=== PATIENT | female | born 1965 | race African-American/Black ===

== ENCOUNTER 2018-11-06 06:54 | Inpatient (IN) | payer OTHER ==
--- NOTE | 2018-11-06 07:50 | Emergency Department Report ---
ED Abdominal Pain HPI - General Chief Complaint: Dyspnea/Respdistress Stated Complaint: SOB Time Seen by Provider: 11/06/18 07:45 Source: patient, family Mode of arrival: Wheelchair Limitations: Physical Limitation - History of Present Illness Initial Comments: This is a 53-year-old female who was due for dialysis today but elected to come to the emergency department for evaluation of shortness of breath. She states that she's had occasional nonproductive cough but certainly no hemoptysis. She does not complain of leg pain. She states that she has minimal swelling of her right lower leg. She does not complain of chest pain. She feels as if gas is running through her abdomen without any acute abdominal pain. She's had no fever or chills. She does not report any nausea or vomiting. She has a recently placed AV graft and a right vas cath. She denies fever or chills. She states she had a transfusion during her recent hospitalization. She also had PCI for non-STEMI. See below. Recent Hospitalization 10/20/18: Hospitalization Reason for admission: ESRD on HD, ACS, NSTEMI Condition: Stable Hospital course: Patient is 53 years old female with history of hypertension, diabetes and end- stage renal disease. Patient had right AV fistula placed today. Patient brought to the ER via EMS accompanied by her daughter and her . Family stated that the patient is not feeling well since left the hospital today. Complaining of generalized weakness and shortness of breath. Patient initial oxygen saturation was 78% patient brought on oxygen and he went to 87%. Patient started on BiPAP. Patient denied any chest pain, fever or cough. Patient found to have a high blood glucose. NSTEMI. CE pattern is c/w NSTEMI type I, ECG with diffuse ST depressions. Optimize anti-ischemic regimen. Patient had left heart cath . cardiac cath revealed lt main patent, lad patent, lcx patent [id number] patent, ostial diagonal 90% small vessel, left to right collateral to pda and rca mid 99% dejuan 2 flow and normal lv function, had pci of rca with wenceslao resolute cali 2.75 x 38 mm and restored dejuan 3 flow and post pci care , asa and plavix Acute heart failure with preserved ejection fraction. Echocardiogram reveals EF 60-65%. Hemodialysis initiated. ESRD on HD ; nephrology os on board and was dialized while she was inpatient and O/P hemodialysis arranged. Sepsis. was treated with IV rocephin. Acute hypoxemic respiratory failure. Etiology secondary to volume overload and bilateral pneumonia. Continue to treat underlying causes. Improved. Acute on Chronic kidney disease stage V. Hemodialysis per nephrology. Hypertension. Continue antihypertensive medications. Anemia. Follow H&H and transfuse for hemoglobin less than 7. Disposition: will be discharged once O/P HD is arranged. Disposition: [id number] HOME UNDER HOME [facility] Time spent for discharge: 34 minutes - Discharge Diagnoses (1) Acute on chronic kidney failure Status: Acute (2) Acute respiratory failure with hypoxia Status: Acute (3) Fluid overload Status: Acute (4) HTN (hypertension) Status: Acute Core Measure Documentation - Palliative Care Palliative Care/ Comfort Measures: Not Applicable - Core Measures Any of the following diagnoses?: heart failure - Acute HI Discharge Requirements Aspirin at discharge: Yes GEOFFREY/ARB for LVSD if EF <40%: No Reason for no GEOFFREY/ARB: Renal impairment Statin for LDL = or >100 mg/dl on DC: Yes - Heart Failure Discharge Requirements GEOFFREY/ARB for LVSD if EF <40%: Not Applicable Beta dedra at discharge: Yes -: Gradual, hour(s) Radiation: other (no complaints of chest pain, vague abdominal gas only) - Related Data Home Medications Medication Instructions Recorded Confirmed Last Taken Sertraline HCl 25 mg PO DAILY 07/23/14 10/13/18 10/11/18 Aspirin [Adult Aspirin] 81 mg PO DAILY 10/11/18 10/13/18 1 Week Ago ~10/05/18 Sodium Bicarbonate 3 tab PO BID 10/11/18 10/13/18 10/11/18 amLODIPine [Norvasc] 5 mg PO QPM 10/11/18 10/13/18 10/11/18 Carvedilol 6.25 mg PO BID 10/13/18 10/13/18 Unknown Previous Rx's Medication Instructions Recorded Last Taken Type HYDROcodone/APAP 5-325 [[place] 1 each PO Q6HR PRN #30 tablet 10/12/18 1 Day Ago Rx 5-325 mg TAB] ~10/12/18 Aspirin [Aspirin BABY CHEW TAB] 81 mg PO QDAY #30 tab.chew 10/20/18 Unknown Rx Carvedilol [Coreg] 25 mg PO BID #60 tablet 10/20/18 Unknown Rx Clopidogrel [Plavix] 75 mg PO QDAY #30 tablet 10/20/18 Unknown Rx Ergocalciferol(Vitamin D2)(Nf) 50,000 unit PO QWEEK #4 tablet 10/20/18 Unknown Rx [Vitamin D (Nf)] Famotidine [Pepcid] 20 mg PO DAILY #30 tablet 10/20/18 Unknown Rx Ferrous Sulfate [Iron] 325 mg PO BID #30 tablet 10/20/18 Unknown Rx ISOSORBIDE MONOnitrate [Imdur ER] 30 mg PO QDAY #30 tablet 10/20/18 Unknown Rx Insulin NPH Hum/Reg Insulin Hm 30 unit SQ QPM #1 vial 10/20/18 Unknown Rx [Relion Novolin 70-30 Vial] Insulin NPH Hum/Reg Insulin Hm 35 unit SQ QAM #1 vial 10/20/18 Unknown Rx [Relion Novolin 70-30 Vial] Ipratropium/Albuterol Sulfate 1 ampul IH TIDRT #60 ampul.neb 10/20/18 Unknown Rx [DUONEB *Not for PRN Use*] Losartan [Cozaar] 100 mg PO QDAY #30 tablet 10/20/18 Unknown Rx Pravastatin [Pravachol] 20 mg PO QHS #30 tablet 10/20/18 Unknown Rx amLODIPine [Norvasc] 10 mg PO QAM #30 tablet 10/20/18 Unknown Rx Allergies Allergy/AdvReac Type Severity Reaction Status Date / Time hydrocodone Allergy Unknown Verified 11/06/18 07:29 ED Review of Systems ROS: Stated complaint: SOB Other details as noted in HPI Constitutional: denies: chills, fever Eyes: denies: eye pain, eye discharge, vision change ENT: denies: ear pain, throat pain Respiratory: cough (occasional), shortness of breath. denies: wheezing Cardiovascular: denies: chest pain, palpitations Endocrine: no symptoms reported Gastrointestinal: as per HPI. denies: nausea, diarrhea Genitourinary: denies: urgency, dysuria, discharge Musculoskeletal: as per HPI. denies: back pain, joint swelling, arthralgia Skin: denies: rash, lesions Neurological: denies: headache, weakness, paresthesias Psychiatric: denies: anxiety, depression Hematological/Lymphatic: denies: easy bleeding, easy bruising ED Past Medical Hx - Past Medical History Previous Medical History?: Yes Hx Hypertension: Yes Hx Diabetes: Yes Hx Renal Disease: Yes Additional medical history: Kidneys at 44% function, last tested 05/15 - Surgical History Past Surgical History?: Yes Additional Surgical History: hysterectomy, ovarian cysts, Right chest perm cath - Social History Smoking Status: Never Smoker Substance Use Type: Prescribed - Medications Home Medications: Home Medications Medication Instructions Recorded Confirmed Last Taken Type Sertraline HCl 25 mg PO DAILY 07/23/14 10/13/18 10/11/18 History Aspirin [Adult Aspirin] 81 mg PO DAILY 10/11/18 10/13/18 1 Week Ago History ~10/05/18 Sodium Bicarbonate 3 tab PO BID 10/11/18 10/13/18 10/11/18 History amLODIPine [Norvasc] 5 mg PO QPM 10/11/18 10/13/18 10/11/18 History HYDROcodone/APAP 5-325 [[place] 1 each PO Q6HR PRN #30 tablet 10/12/18 10/13/18 1 Day Ago Rx 5-325 mg TAB] ~10/12/18 Carvedilol 6.25 mg PO BID 10/13/18 10/13/18 Unknown History Aspirin [Aspirin BABY CHEW TAB] 81 mg PO QDAY #30 tab.chew 10/20/18 Unknown Rx Carvedilol [Coreg] 25 mg PO BID #60 tablet 10/20/18 Unknown Rx Clopidogrel [Plavix] 75 mg PO QDAY #30 tablet 10/20/18 Unknown Rx Ergocalciferol(Vitamin D2)(Nf) 50,000 unit PO QWEEK #4 tablet 10/20/18 Unknown Rx [Vitamin D (Nf)] Famotidine [Pepcid] 20 mg PO DAILY #30 tablet 10/20/18 Unknown Rx Ferrous Sulfate [Iron] 325 mg PO BID #30 tablet 10/20/18 Unknown Rx ISOSORBIDE MONOnitrate [Imdur ER] 30 mg PO QDAY #30 tablet 10/20/18 Unknown Rx Insulin NPH Hum/Reg Insulin Hm 30 unit SQ QPM #1 vial 10/20/18 Unknown Rx [Relion Novolin 70-30 Vial] Insulin NPH Hum/Reg Insulin Hm 35 unit SQ QAM #1 vial 10/20/18 Unknown Rx [Relion Novolin 70-30 Vial] Ipratropium/Albuterol Sulfate 1 ampul IH TIDRT #60 ampul.neb 10/20/18 Unknown Rx [DUONEB *Not for PRN Use*] Losartan [Cozaar] 100 mg PO QDAY #30 tablet 10/20/18 Unknown Rx Pravastatin [Pravachol] 20 mg PO QHS #30 tablet 10/20/18 Unknown Rx amLODIPine [Norvasc] 10 mg PO QAM #30 tablet 10/20/18 Unknown Rx ED Physical Exam - General Limitations: Physical Limitation General appearance: alert, in no apparent distress, other (appears somewhat pale) - Head Head exam: Present: atraumatic, normocephalic - Eye Eye exam: Present: normal appearance, PERRL, EOMI. Absent: scleral icterus - ENT ENT exam: Present: mucous membranes moist - Neck Neck exam: Present: normal inspection - Respiratory Respiratory exam: Present: rhonchi. Absent: respiratory distress - Cardiovascular Cardiovascular Exam: Present: regular rate, normal rhythm. Absent: systolic murmur, diastolic murmur, rubs, gallop - GI/Abdominal GI/Abdominal exam: Present: soft, normal bowel sounds. Absent: distended, tend erness, guarding, rebound, rigid - Extremities Exam Extremities exam: Present: normal capillary refill, other (trace pretibial/ankle edema right). Absent: calf tenderness - Back Exam Back exam: Present: normal inspection. Absent: CVA tenderness (R), CVA tenderness (L) - Neurological Exam Neurological exam: Present: alert, oriented X3, CN II-XII intact. Absent: motor sensory deficit - Psychiatric Psychiatric exam: Present: normal affect, normal mood - Skin Skin exam: Present: warm, dry, intact, normal color. Absent: rash ED Course Vital Signs 11/06/18 11/06/18 11/06/18 06:59 07:03 07:26 Temperature 98.6 F 97.6 F Pulse Rate 69 71 Respiratory 18 18 Rate Blood Pressure 150/71 150/71 Blood Pressure [Left] O2 Sat by Pulse 98 97 99 Oximetry 11/06/18 11/06/18 11/06/18 07:30 07:45 08:00 Temperature Pulse Rate 78 Respiratory 21 Rate Blood Pressure 143/58 154/65 154/65 Blood Pressure 146/60 [Left] O2 Sat by Pulse 97 97 100 Oximetry 11/06/18 11/06/18 11/06/18 08:08 08:15 08:30 Temperature Pulse Rate 72 78 Respiratory 22 17 33 H Rate Blood Pressure 148/54 150/43 Blood Pressure [Left] O2 Sat by Pulse 98 100 100 Oximetry 11/06/18 11/06/18 11/06/18 08:46 09:00 09:16 Temperature Pulse Rate 78 68 76 Respiratory 29 H 14 29 H Rate Blood Pressure 150/43 150/43 150/43 Blood Pressure [Left] O2 Sat by Pulse 100 99 100 Oximetry 11/06/18 11/06/18 11/06/18 09:30 09:46 10:00 Temperature Pulse Rate 80 70 97 H Respiratory 31 H 28 H 24 Rate Blood Pressure 150/43 149/61 145/127 Blood Pressure [Left] O2 Sat by Pulse 100 99 98 Oximetry 11/06/18 11/06/18 11/06/18 10:16 10:30 10:46 Temperature Pulse Rate Respiratory Rate Blood Pressure 145/127 148/66 148/66 Blood Pressure [Left] O2 Sat by Pulse 99 100 100 Oximetry 11/06/18 11/06/18 11/06/18 11:00 11:16 11:30 Temperature Pulse Rate 73 77 Respiratory 23 26 H Rate Blood Pressure 148/65 148/65 155/67 Blood Pressure [Left] O2 Sat by Pulse 100 100 100 Oximetry - Reevaluation(s) Reevaluation #1: Patient is now being dialyzed. She remained in stable condition. Her right of way agent is here to see her. The hospitalist has already contacted the emergency department. 11/06/18 12:02 ED Medical Decision Making - Lab Data Result diagrams: 11/06/18 07:56 11/06/18 07:56 Laboratory Results - last 24 hr 11/06/18 11/06/18 11/06/18 07:56 07:56 07:56 WBC 9.0 RBC 3.16 L Hgb 9.8 L Hct 28.6 L MCV 91 MCH 31 MCHC 34 RDW 13.7 Plt Count 213 Lymph % (Auto) 11.9 L [place] % (Auto) 5.4 Eos % (Auto) 3.0 Baso % (Auto) 0.5 Lymph # 1.1 L [place] # 0.5 Eos # 0.3 Baso # 0.0 Seg Neutrophils % 79.2 H Seg Neutrophils # 7.1 PT 13.8 INR 1.02 APTT 28.8 D-Dimer 1125.20 H Sodium 134 L Potassium 5.0 Chloride 98.0 Carbon Dioxide 21 L Anion Gap 20 BUN 21 H Creatinine 4.0 H Estimated GFR 12 BUN/Creatinine Ratio 5 Glucose 195 H Lactic Acid Calcium 9.3 Magnesium 2.00 Total Bilirubin 0.70 AST 13 ALT 16 Alkaline Phosphatase 96 Total Creatine Kinase 55 CK-MB (CK-2) 1.2 CK-MB (CK-2) Rel Index 2.1 Troponin T < 0.010 Total Protein 7.6 Albumin 4.3 Albumin/Globulin Ratio 1.3 Lipase 39 11/06/18 07:56 WBC RBC Hgb Hct MCV MCH MCHC RDW Plt Count Lymph % (Auto) [place] % (Auto) Eos % (Auto) Baso % (Auto) Lymph # [place] # Eos # Baso # Seg Neutrophils % Seg Neutrophils # PT INR APTT D-Dimer Sodium Potassium Chloride Carbon Dioxide Anion Gap BUN Creatinine Estimated GFR BUN/Creatinine Ratio Glucose Lactic Acid 0.60 L Calcium Magnesium Total Bilirubin AST ALT Alkaline Phosphatase Total Creatine Kinase CK-MB (CK-2) CK-MB (CK-2) Rel Index Troponin T Total Protein Albumin Albumin/Globulin Ratio Lipase Critical Care Time: Yes Critical care time in (mins) excluding proc time.: 45 Critical care attestation.: If time is entered above; I have spent that time in minutes in the direct care of this critically ill patient, excluding procedure time. ED Disposition Clinical Impression: End-stage renal disease needing dialysis, Elevated d-dimer Pulmonary edema Qualifiers: Chronicity: acute Qualified Code(s): J81.0 - Acute pulmonary edema Disposition: OP ADMIT IP TO THIS HOSP Is pt being admited?: Yes Does the pt Need Aspirin: Yes Condition: Stable Instructions: Pulmonary Edema (ED) Referrals: CAITLIN JOHNS MD [Primary Care Provider] - 3-5 Days
[2018-11-06 08:18] LABS: Basophils % (Auto) 0.5 % (0.0-1.8); Eosinophils # (Auto) 0.3 K/mm3 (0.0-0.4); Hematocrit 28.6 % (30.3-42.9); Hemoglobin 9.8 gm/dl (10.1-14.3); Lymphocytes # (Auto) 1.1 K/mm3 (1.2-5.4); Lymphocytes % (Auto) 11.9 % (13.4-35.0); Mean Corpuscular HGB Conc 34 % (30-34); Mean Corpuscular Volume 91 fl (79-97); Monocytes # (Auto) 0.5 K/mm3 (0.0-0.8); Monocytes % (Auto) 5.4 % (0.0-7.3); Platelet Count 213 K/mm3 (140-440); Red Blood Count 3.16 M/mm3 (3.65-5.03); Red Cell Distribution Width 13.7 % (13.2-15.2)
[2018-11-06 08:31] LABS: INR 1.02 (0.87-1.13)
[2018-11-06 08:32] LABS: Partial Thromboplastin Time 28.8 Sec. (24.2-36.6)
[2018-11-06 08:41] LABS: Creatine Kinase MB 1.2 ng/mL (0.0-4.0)
[2018-11-06 08:44] LABS: Alanine Aminotransferase 16 units/L (7-56); Albumin 4.3 g/dL (3.9-5); BUN/Creatinine Ratio 5; Blood Urea Nitrogen 21 mg/dL (7-17); Calcium 9.3 mg/dL (8.4-10.2); Hemolysis Index 3
[2018-11-06 08:49] LABS: Bilirubin,Direct < 0.2 mg/dL (0-0.2)
[2018-11-06] MEDS ORDERED: LASIX IV ONE (08:57)
--- NOTE | 2018-11-06 09:07 | XRay Report ---
FINAL REPORT EXAM: XR CHEST 1V AP HISTORY: Dyspnea TECHNIQUE: Frontal chest x-ray. PRIORS: Chest x-ray October 14, 2018. FINDINGS: Hypoaerated lungs accentuate the pulmonary markings and cardiac silhouette. Cardiac silhouette is within normal limits. Prominent bilateral pulmonary markings with airspace opacities. No pneumothorax. Small bilateral pleu ral effusions with adjacent areas of subsegmental atelectasis. There are no suspicious osseous lesions. Right jugular dual lumen dialysis catheter tip is near the caval atrial junction. IMPRESSION: Pulmonary findings suggest pulmonary vascular congestion with edema. Slightly decreased compared to p rior. Differential diagnosis includes pneumonia and pneumonitis. Small bilateral pleural effusions with adjacent areas of subsegmental atelectasis.
[2018-11-06 09:24] LABS: Bilirubin,Urine NEG (Negative); Blood,Urine NEG (Negative); Color,Urine Straw (Yellow); Mucus,Urine FEW /HPF; Urobilinogen,Urine < 2.0 mg/dL (<2.0)
[2018-11-06] MEDS ORDERED: NACL 0.9% 100 ML IV PRN (09:31)
[2018-11-06] MEDS ORDERED: BABY ASPIRIN PO ONE (12:03)
--- NOTE | 2018-11-06 12:45 | Consultation ---
History of Present Illness - Reason for Consult end stage renal disease Requesting physician: TANYA STRINGER - History of Present Illness Patient is 53 years old female with history of hypertension, diabetes and end- stage renal disease. She is brought to the emergency room with the complaints of shortness of breath. She was started on dialysis approximately a month ago. She currently undergoes dialysis at [facility]. She also has been complaining of some increasing leg swelling. Denies any nausea or vomiting. Past History Past Medical History: CAD, dialysis, hypertension Past Surgical History: Other (history of PermCath placement as well as AV fistula creation) Social history: no significant social history Family history: no significant family history Medications and Allergies Allergies Allergy/AdvReac Type Severity Reaction Status Date / Time hydrocodone Allergy Unknown Verified 11/06/18 07:29 Home Medications Medication Instructions Recorded Confirmed Last Taken Type Sertraline HCl 25 mg PO DAILY 07/23/14 10/13/18 10/11/18 History Aspirin [Adult Aspirin] 81 mg PO DAILY 10/11/18 10/13/18 1 Week Ago History ~10/05/18 Sodium Bicarbonate 3 tab PO BID 10/11/18 10/13/18 10/11/18 History amLODIPine [Norvasc] 5 mg PO QPM 10/11/18 10/13/18 10/11/18 History HYDROcodone/APAP 5-325 [[place] 1 each PO Q6HR PRN #30 tablet 10/12/18 10/13/18 1 Day Ago Rx 5-325 mg TAB] ~10/12/18 Carvedilol 6.25 mg PO BID 10/13/18 10/13/18 Unknown History Aspirin [Aspirin BABY CHEW TAB] 81 mg PO QDAY #30 tab.chew 10/20/18 Unknown Rx Carvedilol [Coreg] 25 mg PO BID #60 tablet 10/20/18 Unknown Rx Clopidogrel [Plavix] 75 mg PO QDAY #30 tablet 10/20/18 Unknown Rx Ergocalciferol(Vitamin D2)(Nf) 50,000 unit PO QWEEK #4 tablet 10/20/18 Unknown Rx [Vitamin D (Nf)] Famotidine [Pepcid] 20 mg PO DAILY #30 tablet 10/20/18 Unknown Rx Ferrous Sulfate [Iron] 325 mg PO BID #30 tablet 10/20/18 Unknown Rx ISOSORBIDE MONOnitrate [Imdur ER] 30 mg PO QDAY #30 tablet 10/20/18 Unknown Rx Insulin NPH Hum/Reg Insulin Hm 30 unit SQ QPM #1 vial 10/20/18 Unknown Rx [Relion Novolin 70-30 Vial] Insulin NPH Hum/Reg Insulin Hm 35 unit SQ QAM #1 vial 10/20/18 Unknown Rx [Relion Novolin 70-30 Vial] Ipratropium/Albuterol Sulfate 1 ampul IH TIDRT #60 ampul.neb 10/20/18 Unknown Rx [DUONEB *Not for PRN Use*] Losartan [Cozaar] 100 mg PO QDAY #30 tablet 10/20/18 Unknown Rx Pravastatin [Pravachol] 20 mg PO QHS #30 tablet 10/20/18 Unknown Rx amLODIPine [Norvasc] 10 mg PO QAM #30 tablet 10/20/18 Unknown Rx Active Meds: Active Medications Sodium Chloride (Nacl 0.9%) 100 mls @ 999 mls/hr IV ANSELMO PRN PRN Reason: Hypotension Review of Systems All systems: negative (negative except as noted above) Exam - Vital Signs Vital signs: Vital Signs Temp Pulse Resp BP Pulse Ox 98.6 F 69 18 150/71 98 11/06/18 06:59 11/06/18 06:59 11/06/18 06:59 11/06/18 06:59 11/06/18 06:59 - General Appearance General appearance: well-developed, well-nourished, appears stated age EENT: PERRL, mucous membranes moist Neck: Present: neck supple, trachea midline. Absent: JVD/HJR, Masses Respiratory: Rales (bibasilar crackles) Heart: regular, normal heart rate, S1S2, no murmurs Gastrointestinal: Present: normal, normoactive bowel sounds Integumentary: other (1+ edema. AV fistula right upper arm. Good bruit and thrill. Not mature yet) Results - Lab Results 11/06/18 07:56 11/06/18 07:56 Most recent lab results Calcium 9.3 mg/dL (8.4-10.2) 11/06/18 07:56 Magnesium 2.00 mg/dL (1.7-2.3) 11/06/18 07:56 Assessment and Plan Impression * End-stage renal disease on maintenance hemodialysis * Shortness of breath. Most likely secondary to pulmonary edema * Hypertension * Coronary artery disease * Anemia secondary to ESRD Recommendations * Arrange for hemodialysis treatment today * Remove fluid as tolerated * Adjust diet and meds for ESRD state * No IV, BP of any puncture access arm * Binders with meals * Procrit with dialysis * Agree with VQ scan to rule out pulmonary embolism * Discussed with family at bedside * Thank you very much for the consultation. Shall follow along with you
--- NOTE | 2018-11-06 13:58 | Nuclear Medicine Report ---
FINAL REPORT EXAM: NM LUNG SCAN PERF/VENT HISTORY: LULI elevated dimer TECHNIQUE: 13.6 mCi Xenon-133 was used for ventilation. 5.1 mCi of technetium 99m MAA was used for perfusion. Multiple planar images were obtained. PRIORS: Chest x-ray November 06, 2018. FINDINGS: Ventilation: Heterogeneous. Perfusion: Subsegmental perfusion deficits in both upper lobes. Prominent cardiac silhouette. IMPRESSION: Based on the PIOPED study, findings represent low probability for PE. Suspect COPD or pulmonary vascular congestion. Cardiomegaly
--- NOTE | 2018-11-06 16:56 | History and Physical Report ---
History of Present Illness Date of examination: 11/06/18 Date of admission: 11/06/18 11:34 Chief complaint: Shortness of breath History of present illness: 53-year-old female with past medical history significant for ESRD on hemodialysis, NSTEMI status post stent, hypertension, diabetes mellitus, congestive heart failure presented to the emergency department complaining of shortness of breath that was worsened yesterday. Patient is also complaining wheezing and occasional dry cough. Patient denies chest pain, fever, runny nose, palpitation, leg swelling, PND. Patient had 3 hours of dialysis on . Patient was recently discharged after she was treated for ESRD on hemodialysis, NSTEMI and CHF. REVIEW OF SYSTEMS: GENERAL: no weight change, no fatigue, no fever HEAD: no head ache EYES: no blurry vision, no acute visual loss EARS: no hearing loss, no discharge, no earache NOSE: no stuffiness, no sneezing, no discharge MOUTH, THROAT AND NECK: no bleeding gums, no sore throat, no swollen neck CARDIAC: As stated in HPI. RESPIRATORY: As stated in the HPI. GI: no decreased appetite, no nausea, no vomiting, no dysphagia, no diarrhea, no constipation, no abdominal pain. URINARY: no change in frequency, no urgency, no polyuria, no hematuria, no incontinence. MUSCULOSKELETAL: no muscle weakness, no pain, no joint stiffness. NEUROLOGIC: no loss of sensation/numbness, no tingling, no tremors, no weakness/paralysis. HEMATOLOGIC: no anemia, no easy bruising. SKIN: no rashes. ENDOCRINE: no heat/cold intolerance, no polyuria, no polydipsia, no thyroid problems. PSYCHIATRIC: no anxiety, no depression, no suicidal ideations. Past History Past Medical History: CAD, dialysis, hypertension Past Surgical History: hysterectomy, Other (history of PermCath placement as well as AV fistula creation) Social history: full code. denies: smoking, alcohol abuse, prescription drug abuse, IV drug use Family history: no significant family history Medications and Allergies Allergies Allergy/AdvReac Type Severity Reaction Status Date / Time hydrocodone Allergy Unknown Verified 11/06/18 07:29 Home Medications Medication Instructions Recorded Confirmed Last Taken Type Sertraline HCl 25 mg PO DAILY 07/23/14 10/13/18 10/11/18 History Aspirin [Adult Aspirin] 81 mg PO DAILY 10/11/18 10/13/18 1 Week Ago History ~10/05/18 Sodium Bicarbonate 3 tab PO BID 10/11/18 10/13/18 10/11/18 History amLODIPine [Norvasc] 5 mg PO QPM 10/11/18 10/13/18 10/11/18 History HYDROcodone/APAP 5-325 [[place] 1 each PO Q6HR PRN #30 tablet 10/12/18 10/13/18 1 Day Ago Rx 5-325 mg TAB] ~10/12/18 Carvedilol 6.25 mg PO BID 10/13/18 10/13/18 Unknown History Aspirin [Aspirin BABY CHEW TAB] 81 mg PO QDAY #30 tab.chew 10/20/18 Unknown Rx Carvedilol [Coreg] 25 mg PO BID #60 tablet 10/20/18 Unknown Rx Clopidogrel [Plavix] 75 mg PO QDAY #30 tablet 10/20/18 Unknown Rx Ergocalciferol(Vitamin D2)(Nf) 50,000 unit PO QWEEK #4 tablet 10/20/18 Unknown Rx [Vitamin D (Nf)] Famotidine [Pepcid] 20 mg PO DAILY #30 tablet 10/20/18 Unknown Rx Ferrous Sulfate [Iron] 325 mg PO BID #30 tablet 10/20/18 Unknown Rx ISOSORBIDE MONOnitrate [Imdur ER] 30 mg PO QDAY #30 tablet 10/20/18 Unknown Rx Insulin NPH Hum/Reg Insulin Hm 30 unit SQ QPM #1 vial 10/20/18 Unknown Rx [Relion Novolin 70-30 Vial] Insulin NPH Hum/Reg Insulin Hm 35 unit SQ QAM #1 vial 10/20/18 Unknown Rx [Relion Novolin 70-30 Vial] Ipratropium/Albuterol Sulfate 1 ampul IH TIDRT #60 ampul.neb 10/20/18 Unknown Rx [DUONEB *Not for PRN Use*] Losartan [Cozaar] 100 mg PO QDAY #30 tablet 10/20/18 Unknown Rx Pravastatin [Pravachol] 20 mg PO QHS #30 tablet 10/20/18 Unknown Rx amLODIPine [Norvasc] 10 mg PO QAM #30 tablet 10/20/18 Unknown Rx Active Meds: Active Medications Sodium Chloride (Nacl 0.9%) 100 mls @ 999 mls/hr IV ANSELMO PRN PRN Reason: Hypotension Exam - Physical Exam Narrative exam: Not in cardiopulmonary distress. The patient appeared well nourished and normally developed. Vital signs as documented. Head exam is unremarkable. No scleral icterus . Neck is without jugular venous distension, thyromegaly, or carotid bruits. Lungs are clear to auscultation. Cardiac exam reveals regular rate and Rhythm. Abdominal exam reveals normal bowel sounds. Extremities are nonedematous. 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 - Constitutional Vitals: Temp Pulse Resp BP Pulse Ox 97.6 F 70 16 109/56 100 11/06/18 14:15 11/06/18 16:45 11/06/18 16:30 11/06/18 16:45 11/06/18 12:00 Results - Labs CBC & Chem 7: 11/06/18 07:56 11/06/18 07:56 Labs: Laboratory Last Values WBC 9.0 K/mm3 (4.5-11.0) 11/06/18 07:56 RBC 3.16 M/mm3 (3.65-5.03) L 11/06/18 07:56 Hgb 9.8 gm/dl (10.1-14.3) L 11/06/18 07:56 Hct 28.6 % (30.3-42.9) L 11/06/18 07:56 MCV 91 fl (79-97) 11/06/18 07:56 MCH 31 pg (28-32) 11/06/18 07:56 MCHC 34 % (30-34) 11/06/18 07:56 RDW 13.7 % (13.2-15.2) 11/06/18 07:56 Plt Count 213 K/mm3 (140-440) 11/06/18 07:56 Lymph % (Auto) 11.9 % (13.4-35.0) L 11/06/18 07:56 [place] % (Auto) 5.4 % (0.0-7.3) 11/06/18 07:56 Eos % (Auto) 3.0 % (0.0-4.3) 11/06/18 07:56 Baso % (Auto) 0.5 % (0.0-1.8) 11/06/18 07:56 Lymph # 1.1 K/mm3 (1.2-5.4) L 11/06/18 07:56 [place] # 0.5 K/mm3 (0.0-0.8) 11/06/18 07:56 Eos # 0.3 K/mm3 (0.0-0.4) 11/06/18 07:56 Baso # 0.0 K/mm3 (0.0-0.1) 11/06/18 07:56 Seg Neutrophils % 79.2 % (40.0-70.0) H 11/06/18 07:56 Seg Neutrophils # 7.1 K/mm3 (1.8-7.7) 11/06/18 07:56 PT 13.8 Sec. (12.2-14.9) 11/06/18 07:56 INR 1.02 (0.87-1.13) 11/06/18 07:56 APTT 28.8 Sec. (24.2-36.6) 11/06/18 07:56 D-Dimer 1125.20 ng/mlDDU (0-234) H 11/06/18 07:56 Sodium 134 mmol/L (137-145) L 11/06/18 07:56 Potassium 5.0 mmol/L (3.6-5.0) 11/06/18 07:56 Chloride 98.0 mmol/L (98-107) 11/06/18 07:56 Carbon Dioxide 21 mmol/L (22-30) L 11/06/18 07:56 Anion Gap 20 mmol/L 11/06/18 07:56 BUN 21 mg/dL (7-17) H 11/06/18 07:56 Creatinine 4.0 mg/dL (0.7-1.2) H 11/06/18 07:56 Estimated GFR 12 ml/min 11/06/18 07:56 BUN/Creatinine Ratio 5 % 11/06/18 07:56 Glucose 195 mg/dL (65-100) H 11/06/18 07:56 Lactic Acid 0.60 mmol/L (0.7-2.0) L 11/06/18 07:56 Calcium 9.3 mg/dL (8.4-10.2) 11/06/18 07:56 Magnesium 2.00 mg/dL (1.7-2.3) 11/06/18 07:56 Total Bilirubin 0.70 mg/dL (0.1-1.2) 11/06/18 07:56 Direct Bilirubin < 0.2 mg/dL (0-0.2) 11/06/18 07:56 AST 13 units/L (5-40) 11/06/18 07:56 ALT 16 units/L (7-56) 11/06/18 07:56 Alkaline Phosphatase 96 units/L (35-129) 11/06/18 07:56 Total Creatine Kinase 55 units/L (30-135) 11/06/18 07:56 CK-MB (CK-2) 1.2 ng/mL (0.0-4.0) 11/06/18 07:56 CK-MB (CK-2) Rel Index 2.1 (0-4) 11/06/18 07:56 Troponin T < 0.010 ng/mL (0.00-0.029) 11/06/18 10:34 Total Protein 7.6 g/dL (6.3-8.2) 11/06/18 07:56 Albumin 4.3 g/dL (3.9-5) 11/06/18 07:56 Albumin/Globulin Ratio 1.3 % 11/06/18 07:56 Lipase 39 units/L (13-60) 11/06/18 07:56 Urine Color Straw (Yellow) 11/06/18 07:59 Urine Turbidity Clear (Clear) 11/06/18 07:59 Urine pH 8.0 (5.0-7.0) H 11/06/18 07:59 Ur Specific [place] 1.008 (1.003-1.030) 11/06/18 07:59 Urine Protein 100 mg/dl mg/dL (Negative) 11/06/18 07:59 Urine Glucose (UA) 150 mg/dL (Negative) 11/06/18 07:59 Urine Ketones Neg mg/dL (Negative) 11/06/18 07:59 Urine Blood Neg (Negative) 11/06/18 07:59 Urine Nitrite Neg (Negative) 11/06/18 07:59 Urine Bilirubin Neg (Negative) 11/06/18 07:59 Urine Urobilinogen < 2.0 mg/dL (<2.0) 11/06/18 07:59 Ur Leukocyte Esterase Mod (Negative) 11/06/18 07:59 Urine WBC (Auto) 1.0 /HPF (0.0-6.0) 11/06/18 07:59 Urine RBC (Auto) 1.0 /HPF (0.0-6.0) 11/06/18 07:59 U Epithel Cells (Auto) 6.0 /HPF (0-13.0) 11/06/18 07:59 Urine Mucus Few /HPF 11/06/18 07:59 - Imaging and Cardiology Chest x-ray: report reviewed (pulmonary congestion) Assessment and Plan Assessment and plan: Fluid overload secondary to ESRD vs CHF - Nephrology consulted and will have hemodialysis today CHF - I hold all the medications because blood pressure is low - We will restart once her pressures normalized CAD - Stable, patient didn't have any chest pain Diabetes mellitus - SSI Elevated d-dimer - VQ scan low probability for PE DVT prophylaxis - On heparin Disposition - Admit to the floor for hemodialysis Advance Directives: Yes VTE prophylaxis?: Chemical Plan of care discussed with patient/family: Yes
[2018-11-06] MEDS ORDERED: D50W (25GM) Syringe IV PRN (17:02)
[2018-11-06] MEDS ORDERED: NORCO 5/325 PO PRN (17:04)
[2018-11-06] MEDS ORDERED: NACL 0.9% 1000 ML 1,000 ML ONE (18:40)
[2018-11-06] MEDS ORDERED: BABY ASPIRIN ONE (19:23)
[2018-11-06] MEDS: HumaLOG SUB-Q SCH (22:00)
[2018-11-06] MEDS: HEPARIN SUB-Q SCH (22:22)
[2018-11-06] MEDS: SODIUM BICARBONATE PO SCH (22:22)
[2018-11-07] MEDS: DUONEB *Not for PRN Use IH SCH ×3 (05:18→13:54)
[2018-11-07] MEDS: HumaLOG SUB-Q SCH ×2 (08:17→12:58)
--- NOTE | 2018-11-07 09:06 | XRay Report ---
FINAL REPORT EXAM: XR CHEST 1V AP HISTORY: Pulmonary venous congestion. TECHNIQUE: Frontal chest x-ray. PRIORS: Chest x-ray November 06, 2018. FINDINGS: Hypoaerated lungs accentuate the pulmonary markings and cardiac silhouette. Cardiac silhouette is stable. Prominent bilateral pulmonary markings with airspace opacities. No pneumothorax. Small bilateral pleu ral effusions with adjacent areas of subsegmental atelectasis. There are no suspicious osseous lesions. Right jugular dual lumen dialysis catheter tip is near the caval atrial junction. IMPRESSION: Pulmonary findings suggest pulmonary vascular congestion with edema. Stable. Differential diagnosis i ncludes pneumonia and pneumonitis. Stable small bilateral pleural effusions with adjacent areas of subsegmental atelectasis.
[2018-11-07] MEDS ORDERED: PLAVIX PO SCH (10:00)
[2018-11-07] MEDS ORDERED: PEPCID PO SCH (10:00)
[2018-11-07] MEDS ORDERED: HALFPRIN EC PO SCH (10:00)
[2018-11-07] MEDS ORDERED: ZOLOFT PO SCH (10:00)
--- NOTE | 2018-11-07 11:04 | Discharge Summary ---
Providers - Providers Date of Admission: 11/06/18 11:34 Attending physician: CASANDRA DRAKE MD 11/06/18 08:49 Consult to Physician [CONS] Urgent Comment: Consulting Provider: PER COTA Physician Instructions: Reason For Exam: CHF, Dialysis Primary care physician: CAITLIN JOHNS Hospitalization Reason for admission: fluid overload, CHF, ESRD on HD Condition: Stable Hospital course: 53-year-old female with past medical history significant for ESRD on hemodialysis, NSTEMI status post stent, hypertension, diabetes mellitus, c ongestive heart failure presented to the emergency department complaining of shortness of breath that was worsened yesterday. Patient is also complaining wheezing and occasional dry cough. Patient denies chest pain, fever, runny nose, palpitation, leg swelling, PND. Patient had 3 hours of dialysis on . Patient was recently discharged after she was treated for ESRD on hemodialysis, NSTEMI and CHF. Patient was admitted for dyspnea secondary to fluid overload. Patient was dialyzed and symptoms resolved and discharged home. Patient has enough refills of his medications in her recent discharge and doesn't need any scripts now. Patient was hemodynamically stable at the time of discharge. Disposition: - TO HOME OR SELFCARE Time spent for discharge: 32 minutes - Discharge Diagnoses (1) End-stage renal disease needing dialysis Status: Acute (2) Pulmonary edema Status: Acute Qualifiers: Chronicity: acute Qualified Code(s): J81.0 - Acute pulmonary edema (3) Acute heart failure with preserved ejection fraction Status: Acute (4) CAD (coronary artery disease) Status: Chronic Core Measure Documentation - Palliative Care Palliative Care/ Comfort Measures: Not Applicable - Core Measures Any of the following diagnoses?: history only (CHF) Exam - Physical Exam Narrative exam: Not in cardiopulmonary distress. The patient appeared well nourished and normally developed. Vital signs as documented. Head exam is unremarkable. No scleral icterus . Neck is without jugular venous distension, thyromegaly, or carotid bruits. Lungs are clear to auscultation. Cardiac exam reveals regular rate and Rhythm. Abdominal exam reveals normal bowel sounds. Extremities are nonedematous. 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 - Constitutional Vitals: Temp Pulse Resp BP Pulse Ox 98.3 F 71 14 126/50 97 11/07/18 07:50 11/07/18 07:50 11/07/18 07:50 11/07/18 07:50 11/07/18 10:18 Plan Activity: no restrictions Weight Bearing Status: Full Weight Bearing Diet: low salt, diabetic Follow up with: CAITLIN JOHNS MD [Primary Care Provider] - 3-5 Days Prescriptions: Furosemide [Lasix] 80 mg PO Q48H #30 tablet
--- NOTE | 2018-11-07 11:14 | Progress Note ---
Assessment and Plan Impression * End-stage renal disease on maintenance hemodialysis * Shortness of breath. Most likely secondary to pulmonary edema * Hypertension * Coronary artery disease * Anemia secondary to ESRD Recommendations * clinically patient is doing much better * Volume overload has been corrected * Adjust diet and meds for ESRD state * No IV, BP of any puncture access arm * Binders with meals * Procrit with dialysis * VQ scan low probability for PE * Discussed with family at bedside * okay to discharge patient home from renal standpoint * Recommend adding Lasix 80 mg by mouth on nondialysis days Subjective Date of service: 11/07/18 Interval history: Patient is comfortable today. Shortness of breath has resolved. Objective - Vital Signs Vital signs: Vital Signs - 12hr 11/06/18 11/07/18 11/07/18 23:31 03:57 04:00 Temperature 98.5 F 98.4 F Pulse Rate 60 64 65 Pulse Rate [ Posterior Bilateral Bases ] Respiratory 16 18 Rate Respiratory Rate [Posterior Bilateral Bases] Blood Pressure 127/50 139/53 O2 Sat by Pulse 99 100 Oximetry 11/07/18 11/07/18 11/07/18 07:42 07:50 10:18 Temperature 98.3 F Pulse Rate 71 Pulse Rate [ 66 Posterior Bilateral Bases ] Respiratory 14 Rate Respiratory 18 Rate [Posterior Bilateral Bases] Blood Pressure 126/50 O2 Sat by Pulse 99 97 Oximetry - General Appearance General appearance: well-developed, well-nourished, appears stated age EENT: PERRL, mucous membranes moist Neck: no JVD, no thyromegaly, no carotid bruit, supple, other (right IJ PermCath in place) Respiratory: Present: Clear to Ascultation Cardiology: regular, normal heart rate, S1S2, no murmurs Gastrointestinal: normal, normoactive bowel sounds Integumentary: no rash, other (no edema. AV fistula right upper arm. Not mature yet) - Lab 11/06/18 07:56 11/07/18 04:36 Most recent lab results Calcium 9.0 mg/dL (8.4-10.2) 11/07/18 04:36 Magnesium 2.00 mg/dL (1.7-2.3) 11/06/18 07:56 Medications & Allergies - Medications Allergies/Adverse Reactions: Allergies hydrocodone Allergy (Verified 11/06/18 07:29) Unknown Home Medications: Home Medications Medication Instructions Recorded Confirmed Last Taken Type Sertraline HCl 25 mg PO DAILY 07/23/14 11/07/18 11/05/18 History Aspirin [Adult Aspirin] 81 mg PO DAILY 10/11/18 11/07/18 11/06/18 History Sodium Bicarbonate 3 tab PO BID 10/11/18 11/07/18 11/05/18 History amLODIPine [Norvasc] 5 mg PO QPM 10/11/18 11/07/18 11/05/18 History HYDROcodone/APAP 5-325 [[place] 1 each PO Q6HR PRN #30 tablet 10/12/18 11/07/18 1 Day Ago Rx 5-325 mg TAB] ~10/12/18 Carvedilol 6.25 mg PO BID 10/13/18 11/07/18 11/06/18 History Aspirin [Aspirin BABY CHEW TAB] 81 mg PO QDAY #30 tab.chew 10/20/18 11/07/18 11/06/18 Rx Carvedilol [Coreg] 25 mg PO BID #60 tablet 10/20/18 11/07/18 11/06/18 Rx Clopidogrel [Plavix] 75 mg PO QDAY #30 tablet 10/20/18 11/07/18 11/05/18 Rx Ergocalciferol(Vitamin D2)(Nf) 50,000 unit PO QWEEK #4 tablet 10/20/18 11/07/18 11/05/18 Rx [Vitamin D (Nf)] Famotidine [Pepcid] 20 mg PO DAILY #30 tablet 10/20/18 11/07/18 11/05/18 Rx Ferrous Sulfate [Iron] 325 mg PO BID #30 tablet 10/20/18 11/07/18 11/05/18 Rx ISOSORBIDE MONOnitrate [Imdur ER] 30 mg PO QDAY #30 tablet 10/20/18 11/07/18 11/05/18 Rx Insulin NPH Hum/Reg Insulin Hm 30 unit SQ QPM #1 vial 10/20/18 11/07/18 Unknown Rx [Relion Novolin 70-30 Vial] Insulin NPH Hum/Reg Insulin Hm 35 unit SQ QAM #1 vial 10/20/18 11/07/18 Unknown Rx [Relion Novolin 70-30 Vial] Ipratropium/Albuterol Sulfate 1 ampul IH TIDRT #60 ampul.neb 10/20/18 11/07/18 Unknown Rx [DUONEB *Not for PRN Use*] Losartan [Cozaar] 100 mg PO QDAY #30 tablet 10/20/18 11/07/18 11/05/18 Rx Pravastatin [Pravachol] 20 mg PO QHS #30 tablet 10/20/18 11/07/18 11/05/18 Rx amLODIPine [Norvasc] 10 mg PO QAM #30 tablet 10/20/18 11/07/18 11/05/18 Rx Furosemide [Lasix] 80 mg PO Q48H #30 tablet 11/07/18 Unknown Rx Active Medications: Generic Name Dose Route Start Last Admin Trade Name Freq PRN Reason Stop Dose Admin Acetaminophen/Hydrocodone [place] 1 each 11/06/18 17:04 [place] 5/325 PO Q6H PRN Pain Albuterol/Ipratropium 1 ampul 11/06/18 20:00 11/07/18 07:37 Duoneb *Not For Prn Use* 1 ampul TIDRT [facility] Administration Aspirin 81 mg 11/07/18 10:00 Halfprin Ec PO DAILY [facility] Clopidogrel Bisulfate 75 mg 11/07/18 10:00 Plavix PO QDAY [facility] Dextrose 50 ml 11/06/18 17:02 D50w (25gm) Syringe IV PRN PRN Hypoglycemia Famotidine 20 mg 11/07/18 10:00 Pepcid PO DAILY [facility] Heparin Sodium (Porcine) 5,000 unit 11/06/18 22:00 11/06/18 22:22 Heparin SUB-Q 5,000 unit Q12HR EDITA Administration Sodium Chloride 100 mls @ 999 mls/hr 11/06/18 09:31 Nacl 0.9% IV ANSELMO PRN Hypotension Insulin Human Lispro 0 unit 11/06/18 22:00 11/07/18 08:17 Humalog SUB-Q Not Given ACHS [facility] Protocol Sertraline HCl 25 mg 11/07/18 10:00 Zoloft PO DAILY [facility] Sodium Bicarbonate 650 mg 11/06/18 22:00 11/06/18 22:22 Sodium Bicarbonate PO 650 mg BID EDITA Administration
[2018-11-07] MEDS: SODIUM BICARBONATE PO SCH (12:54)
[2018-11-07] MEDS: HEPARIN SUB-Q SCH (12:55)
[2018-11-07 14:24] VITALS: BP 133/51
== END 2018-11-07 17:39 | disposition home or self-care (01) | DRG 640 ==
LOC: ED 06:54 → 4A 11:34
PROVIDERS: ADMIT Internal Medicine; ATTEND Internal Medicine
PROC: 5A1D70Z Performance of Urinary Filtration, Intermittent, Less than 6 Hours Per Day (ICD-10-PCS; principal; 2018-11-06)
DX: E87.70 Fluid overload, unspecified (principal); N18.6 End stage renal disease; I13.2 Hypertensive heart and chronic kidney disease with heart failure and with stage 5 chronic kidney disease, or end stage renal disease; I50.1 Left ventricular failure, unspecified; R79.89 Other specified abnormal findings of blood chemistry; I25.10 Atherosclerotic heart disease of native coronary artery without angina pectoris; D63.1 Anemia in chronic kidney disease; E11.22 Type 2 diabetes mellitus with diabetic chronic kidney disease; I50.9 Heart failure, unspecified; Z79.82 Long term (current) use of aspirin; Z79.899 Other long term (current) drug therapy; Z88.5 Allergy status to narcotic agent; I25.2 Old myocardial infarction; Z95.5 Presence of coronary angioplasty implant and graft; Z90.710 Acquired absence of both cervix and uterus
CPT/HCPCS: 36415; 71045; 78582; 80048; 80076; 81001; 82140; 82550; 82553; 82962; 83690; 83735; 84484; 85025; 85379; 85610; 85730; 93005; 93010; 94640; 94760; G0378; A9540; A9558; J1644; J1815; J1940; J7030

== ENCOUNTER 2018-12-17 08:17 | Day surgery (SDC) | payer OTHER ==
[~2018-12-17 08:17] MED LIST: ANCEF/STERILE WATER 2 GM/20 ML 2 GM/20 ML SYRINGE IV NR; GELFOAM TP ONE; HEPARIN 10,000 UNITS/10 ML ONE; MARCAINE-EPI 0.5%-1:200,000 INFILTRATI ONE; NACL 0.9% 1000 ML 1,000 ML IV SCH; NACL 0.9% 500 ML 500 ML ONE; NACL P/F VIAL (10 ML) 0 ML ONE; RIFADIN ONE; THROMBIN (BOVINE) TP ONE
[2018-12-17] MEDS ORDERED: NACL BACTERIOSTATIC INFILTRATI ONE (08:25)
[2018-12-17] MEDS ORDERED: VERSED ONE (09:00)
[2018-12-17] MEDS ORDERED: SUBLIMAZE ONE (09:01)
[2018-12-17] MEDS ORDERED: DIPRIVAN 10 MG/ML IV ONE (09:01)
[2018-12-17] MEDS ORDERED: NACL 0.9% 500 ML IRRIGATION ONE (10:44)
[2018-12-17] MEDS ORDERED: MARCAINE-EPI 0.5%-1:200,000 INFILTRATI ONE ×2 (10:45)
[2018-12-17] MEDS ORDERED: GELFOAM TP ONE (10:46)
[2018-12-17] MEDS ORDERED: THROMBIN (BOVINE) TP ONE (10:46)
[2018-12-17] MEDS ORDERED: NACL 0.9% IR ONE (10:47)
[2018-12-17] MEDS ORDERED: HEPARIN 10,000 UNITS/10 ML IV ONE (10:47)
--- NOTE | 2018-12-17 11:12 | Anesthesia Consultation ---
Anesthesia Consult and Med Hx Date of service: 12/17/18 - Airway Anesthetic Teeth Evaluation: Good ROM Head & Neck: Adequate Mental/Hyoid Distance: Adequate Mallampati Class: Class III Intubation Access Assessment: Possibly Difficult - Pulmonary Exam CTA: Yes - Cardiac Exam Cardiac Exam: RRR - Pre-Operative Health Status ASA Pre-Surgery Classification: ASA4 Proposed Anesthetic Plan: General - Pulmonary Hx Smoking: No Hx Asthma: No Hx Respiratory Symptoms: No - Cardiovascular System Hx Hypertension: Yes Hx Coronary Artery Disease: Yes Hx Heart Attack/AMI: No Hx Percutaneous Transluminal Coronary Angioplasty (PTCA): Yes (NICOLAS to RCA 10/2018; currently on DAPT) Hx Cardia Arrhythmia: No Hx Pacemaker: No Hx Internal Defibrillator: No Hx Valvular Heart Disease: No - Central Nervous System Hx Seizures: No CVA: No Hx Psychiatric Problems: Yes (depression) - Gastrointestinal Hx Gastroesophageal Reflux Disease: Yes (asymptomatic) - Endocrine Hx End Stage Renal Disease: Yes (last HD 12/16/18) Hx Liver Disease: No Hx Insulin Dependent Diabetes: Yes Hx Thyroid Disease: No - Hematic Hx Anemia: Yes - Other Systems Hx Obesity: No - Additional Comments Anesthesia Medical History Comments: No hx anesthetic complications. TTE 10/2018 normal EF; no significant valvular lesions.
[2018-12-17] MEDS ORDERED: SUBLIMAZE IV PRN (11:14)
--- NOTE | 2018-12-17 11:14 | Anesthesia Day of Surgery ---
Anesthesia Day of Surgery - Day of Surgery Patient Examined: Yes Patient H&P Reviewed: Yes Patient is NPO: Yes
--- NOTE | 2018-12-17 11:45 | Short Stay Summary ---
Short Stay Documentation Date of service: 12/17/18 - History H&P: obtained from office - Allergies and Medications Current Medications: Allergies hydrocodone Allergy (Verified 12/15/18 15:13) Unknown Home Medications Medication Instructions Recorded Confirmed Last Taken Type Sertraline HCl 25 mg PO DAILY 07/23/14 12/15/18 12/16/18 History Aspirin [Adult Aspirin] 81 mg PO DAILY 10/11/18 12/15/18 12/16/18 History Sodium Bicarbonate 3 tab PO BID 10/11/18 12/15/18 12/16/18 History amLODIPine [Norvasc] 5 mg PO QPM 10/11/18 12/15/18 12/16/18 History HYDROcodone/APAP 5-325 [[place] 1 each PO Q6HR PRN #30 tablet 10/12/18 12/15/18 12/16/18 Rx 5-325 mg TAB] Carvedilol 6.25 mg PO BID 10/13/18 12/15/18 12/16/18 History Carvedilol [Coreg] 25 mg PO BID #60 tablet 10/20/18 12/15/18 12/16/18 Rx Clopidogrel [Plavix] 75 mg PO QDAY #30 tablet 10/20/18 12/15/18 12/16/18 Rx Ergocalciferol(Vitamin D2)(Nf) 50,000 unit PO QWEEK #4 tablet 10/20/18 12/15/18 12/16/18 Rx [Vitamin D (Nf)] Famotidine [Pepcid] 20 mg PO DAILY #30 tablet 10/20/18 12/15/18 12/16/18 Rx Ferrous Sulfate [Iron] 325 mg PO BID #30 tablet 10/20/18 12/15/18 12/16/18 Rx ISOSORBIDE MONOnitrate [Imdur ER] 30 mg PO QDAY #30 tablet 10/20/18 12/15/18 12/16/18 Rx Insulin NPH Hum/Reg Insulin Hm 30 unit SQ QPM #1 vial 10/20/18 12/15/18 12/16/18 Rx [Relion Novolin 70-30 Vial] Insulin NPH Hum/Reg Insulin Hm 35 unit SQ QAM #1 vial 10/20/18 12/15/18 12/16/18 Rx [Relion Novolin 70-30 Vial] Ipratropium/Albuterol Sulfate 1 ampul IH TIDRT #60 ampul.neb 10/20/18 12/15/18 12/16/18 Rx [DUONEB *Not for PRN Use*] Losartan [Cozaar] 100 mg PO QDAY #30 tablet 10/20/18 12/15/18 12/16/18 Rx Pravastatin [Pravachol] 20 mg PO QHS #30 tablet 10/20/18 12/15/18 12/16/18 Rx amLODIPine [Norvasc] 10 mg PO QAM #30 tablet 10/20/18 12/17/18 12/17/18 07:30 Rx Furosemide [Lasix] 80 mg PO Q48H #30 tablet 11/07/18 12/15/18 12/16/18 Rx Active Medications Fentanyl (Sublimaze) 50 mcg IV Q5MIN PRN PRN Reason: Pain , Severe (7-10) Stop: 12/17/18 20:00 Cefazolin Sodium (Ancef/Sterile Water 2 Gm/20 Ml) 2 gm in 20 mls @ 80 mls/hr IV PREOP NR; Protocol Stop: 12/17/18 23:59 Sodium Chloride (Nacl 0.9% 1000 Ml) 1,000 mls @ 42 mls/hr IV DIRECT EDITA Last Admin: 12/17/18 08:50 Dose: 42 mls/hr Documented by: - Brief post op/procedure progress note Date of procedure: 12/17/18 Pre-op diagnosis: failing arterial venous fistula right upper extremity Post-op diagnosis: same Procedure: Elevation of right upper extremity upper arm brachiobasilic vein fistula Anesthesia: GETA, local (half percent Marcaine with epinephrine) Findings: Excellent quality vein. Good thrill in fistula at end of case. Easily palpable 2+ radial pulse in the right upper extremity. Surgeon: LINDSEY JACQUES Nitroglycerin Nitrator Operator Batch: JACQUELYN LOPEZ Estimated blood loss: 50-100ml Pathology: none Condition: stable - Hospital course Hospital course: Benign - Disposition Condition at discharge: Good Short Stay Discharge Plan Activity: advance as tolerated Diet: advance as tolerated Wound: per your surgeon's advice Follow up with: LINDSEY JACQUES MD [Staff Physician] - 14 Days Prescriptions: traMADol [Ultram 50 MG tab] 50 mg PO Q6HR PRN #30 tablet PRN Reason: Pain
--- NOTE | 2018-12-17 11:49 | Operative Report ---
Operative Report Operative Report: Date of procedure: 12/17/2018 Pre-operative diagnosis: Failing arteriovenous fistula right upper extremity Post-operative diagnosis: Same Procedure name(s): Creation of right upper extremity arteriovenous fistula by upper arm basilic vein transposition Surgeon: Fercho Jalloh MD Diabetes Education Coordinator: Anirudh JAQUEZ Anesthesia: Gen. with local supplementation half percent Marcaine with epinephrine EBL: Less than 100 mL Operative indication: Patient is a 53-year-old woman with end-stage renal failure. There is a maturing basilic vein fistula in the right upper extremity. This requires elevation for use. Findings: Excellent thrill in the fistula the end of the procedure. Easily palpable right radial pulse at the end of the procedure. Procedure: The patient was placed on the table in the supine position. General anesthesia was given. The area over the right arm was prepped with ChloraPrep solution and draped in the usual sterile fashion. Ultrasound guidance was used to identify the location of the basilic vein. The area around the incision site was infiltrated with half percent Marcaine with epinephrine. A linear incision was made along the medial portion of the upper arm over the basilic vein. Dissection was carried out to identify the vein. All nerve structures were spared. All branches of the fistula were taken down with clips and 3-0 silk ties. A subcutaneous tunnel was made on the anterior surface of the upper arm. The tunnel was infiltrated with half percent Marcaine with epinephrine. The vein was occluded near the arterial anastomosis. The vein was divided and hydrodilated with heparinized saline. The vein was then tunneled through the subcutaneous tunnel and redilated with heparinized saline to prevent any kinks or twisting in the fistula. An end to end anastomosis was created in a beveled fashion between the 2 ends of the vein at the arterial side of the fistula using 6-0 Prolene. The fistula was flushed and vented to remove any air or debris and then flow was started into the fistula with the development of an immediate and excellent thrill over the entire body of the fistula in the upper arm. Meticulous hemostasis was obtained. Closure was done with 3-0 Vicryl on the subcutaneous tissue. 4-0 subcuticular PDS was used to close the skin. Sterile dressings were applied. Sponge, needle, and instrument counts were reported as correct. The patient tolerated the procedure well and left the operating room with an easily palpable right radial pulse and an easily palpable thrill in the arteriovenous fistula.
--- NOTE | 2018-12-17 18:03 | Post Anesthesia Evaluation ---
- Post Anesthesia Evaluation Patient Participated: Yes Airway Patent: Yes Stable Respiratory Function: Yes Nausea/Vomiting: No Temp > 96.8F: Yes Pain Manageable: Yes Adequeate Hydration: Yes Anesthesia Complications: No
[2018-12-17 19:39] VITALS: BP 122/58
== END 2018-12-17 08:18 | disposition home or self-care (01) ==
LOC: OR 08:17
PROVIDERS: ATTEND Surgery Vascular Surgery
DX: T82.590A Other mechanical complication of surgically created arteriovenous fistula, initial encounter (principal); I13.2 Hypertensive heart and chronic kidney disease with heart failure and with stage 5 chronic kidney disease, or end stage renal disease; E11.22 Type 2 diabetes mellitus with diabetic chronic kidney disease; N18.6 End stage renal disease; I50.31 Acute diastolic (congestive) heart failure; E11.65 Type 2 diabetes mellitus with hyperglycemia; I25.10 Atherosclerotic heart disease of native coronary artery without angina pectoris; D64.9 Anemia, unspecified; E78.00 Pure hypercholesterolemia, unspecified; K21.9 Gastro-esophageal reflux disease without esophagitis; F32.9 Major depressive disorder, single episode, unspecified; Z95.5 Presence of coronary angioplasty implant and graft; Z98.41 Cataract extraction status, right eye; Z98.51 Tubal ligation status; Z90.710 Acquired absence of both cervix and uterus; Z82.49 Family history of ischemic heart disease and other diseases of the circulatory system; Z88.8 Allergy status to other drugs, medicaments and biological substances; Z79.01 Long term (current) use of anticoagulants; Z79.82 Long term (current) use of aspirin; Z79.4 Long term (current) use of insulin; Z98.890 Other specified postprocedural states; Y83.8 Other surgical procedures as the cause of abnormal reaction of the patient, or of later complication, without mention of misadventure at the time of the procedure; Y92.89 Other specified places as the place of occurrence of the external cause
CPT/HCPCS: 36821; 82803; 82962; A4649; J0690; J1644; J2250; J2704; J3010; J7030; J7040; J3490

== ENCOUNTER 2022-03-09 08:03 | Emergency (ER) | payer OTHER ==
--- NOTE | 2022-03-09 08:17 | Emergency Department Report ---
HPI - General Time Seen by Provider: 03/09/22 08:13 - HPI HPI: Room 20 The patient is a 56-year-old female presenting in cardiac arrest. Per EMS the patient was complaining of being thirsty and shortness of breath before she was a witnessed collapse. EMS arrived on scene at 07:25 to find the patient in asystole. ACLS protocols were initiated and patient was eventually intubated with an ET tube. EMS reports the patient went into V. fib at 1 point was defibrillated. EMS administered 5 rounds of epi, 1 sodium bicarb and amiodarone 300 mg prior to arrival. In the ED ACLS protocols were continued but there was no return of spontaneous circulation ED Past Medical Hx - Past Medical History Hx Hypertension: Yes Hx Congestive Heart Failure: Yes Hx Diabetes: Yes Hx Renal Disease: Yes (ESRD) Additional medical history: Kidneys at 44% function, last tested 05/15 - Surgical History Additional Surgical History: hysterectomy, ovarian cysts, Right chest perm cath - Family History Family history: no significant - Social History Smoking Status: Unknown if ever smoked Substance Use Type: None - Medications Home Medications: Home Medications Medication Instructions Recorded Confirmed Last Taken Type Sertraline HCl 25 mg PO DAILY 07/23/14 12/15/18 12/16/18 History Aspirin [Adult Aspirin] 81 mg PO DAILY 10/11/18 12/15/18 12/16/18 History Sodium Bicarbonate 3 tab PO BID 10/11/18 12/15/18 12/16/18 History amLODIPine 5 mg PO QPM 10/11/18 12/15/18 12/16/18 History HYDROcodone/APAP 5-325 [Metz 1 each PO Q6HR PRN #30 tablet 10/12/18 12/15/18 12/16/18 Rx 5-325 mg TAB] carvediloL [Carvedilol] 6.25 mg PO BID 10/13/18 12/15/18 12/16/18 History Clopidogrel [Plavix] 75 mg PO QDAY #30 tablet 10/20/18 12/15/18 12/16/18 Rx Ergocalciferol(Vitamin D2)(Nf) 50,000 unit PO QWEEK #4 tablet 10/20/18 12/15/18 12/16/18 Rx [Vitamin D (Nf)] Famotidine [Pepcid] 20 mg PO DAILY #30 tablet 10/20/18 12/15/18 12/16/18 Rx Ferrous Sulfate [Iron 325 MG] 325 mg PO BID #30 tablet 10/20/18 12/15/18 12/16/18 Rx ISOSORBIDE MONOnitrate [Imdur ER] 30 mg PO QDAY #30 tablet 10/20/18 12/15/18 12/16/18 Rx Insulin NPH Hum/Reg Insulin Hm 30 unit SQ QPM #1 vial 10/20/18 12/15/18 12/16/18 Rx [Relion Novolin 70-30 Vial] Insulin NPH Hum/Reg Insulin Hm 35 unit SQ QAM #1 vial 10/20/18 12/15/18 12/16/18 Rx [Relion Novolin 70-30 Vial] Ipratropium/Albuterol Sulfate 1 ampul IH TIDRT #60 ampul.neb 10/20/18 12/15/18 12/16/18 Rx [DUONEB *Not for PRN Use*] Losartan [Cozaar] 100 mg PO QDAY #30 tablet 10/20/18 12/15/18 12/16/18 Rx Pravastatin [Pravachol] 20 mg PO QHS #30 tablet 10/20/18 12/15/18 12/16/18 Rx amLODIPine 10 mg PO QAM #30 tablet 10/20/18 12/17/18 12/17/18 07:30 Rx carvediloL [Coreg] 25 mg PO BID #60 tablet 10/20/18 12/15/18 12/16/18 Rx Furosemide [Lasix TAB] 80 mg PO Q48H #30 tablet 11/07/18 12/15/18 12/16/18 Rx traMADoL [Ultram 50 MG tab] 50 mg PO Q6HR PRN #30 tablet 12/17/18 Unknown Rx ED Review of Systems ROS: Stated complaint: CARDIAC ARREST Other details as noted in HPI Comment: Unobtainable due to pts medical conditions Physical Exam - Physical Exam Physical Exam: GENERAL: The patient is well-developed well-nourished female being bagged via ET tube and receiving chest compressions from EMS. [] HEENT: Normocephalic. Atraumatic. NECK: Trachea midline CHEST/LUNGS: Initially breath sounds greatest on the right compared with left. ET tube was pulled back and breath sounds were equal bilaterally with bagging. HEART/CARDIOVASCULAR: No heart sounds. Asystole on the monitor ABDOMEN: Abdomen is soft. There is no abdominal distention. SKIN: There is no rash. There is no edema. There is no diaphoresis. NEURO: GCS 3 T MUSCULOSKELETAL: There is no evidence of acute injury. ED Medical Decision Making - Differential Diagnosis Cardiac arrest Critical care attestation.: If time is entered above; I have spent that time in minutes in the direct care of this critically ill patient, excluding procedure time. ED Disposition Clinical Impression: Cardiac arrest Disposition: 20 Is pt being admited?: No Does the pt Need Aspirin: No Condition: Poor Time of Disposition: 08:13 (Patient )
== END 2022-03-09 14:49 ==
LOC: ED 08:03
DX: I46.9 Cardiac arrest, cause unspecified (principal); I13.11 Hypertensive heart and chronic kidney disease without heart failure, with stage 5 chronic kidney disease, or end stage renal disease; E11.22 Type 2 diabetes mellitus with diabetic chronic kidney disease; N18.6 End stage renal disease
CPT/HCPCS: 92950; 99285